=== PATIENT | male | born 1945 | race Two or more races ===

== ENCOUNTER 2017-06-03 14:13 | Inpatient (IN) | payer MEDICARE, OTHER ==
[~2017-06-03] VITALS: Ht 165.1 cm; Wt 79.4 kg
[2017-06-03] MEDS ORDERED: CRESTOR10 MG PO (15:00)
[2017-06-03] MEDS ORDERED: METFORMIN HCL500 M2 PO (15:00)
[2017-06-03] MEDS ORDERED: FOLIC ACID1 MG PO (15:00)
[2017-06-03] MEDS ORDERED: PRIMIDONE50 MG PO (15:00)
[2017-06-03] MEDS ORDERED: ULTRAM 50MG50 MG PO (15:00)
[2017-06-03] MEDS ORDERED: LASIX40 MG PO (15:00)
[2017-06-03] MEDS ORDERED: LEVOTHYROXINE75 MCG PO (15:00)
[2017-06-03] MEDS ORDERED: FINASTERIDE5 MG PO (15:00)
[2017-06-03] MEDS ORDERED: LYRICA50 MG PO (15:00)
[2017-06-03] MEDS ORDERED: FLOMAX0.4 MG PO (15:00)
[2017-06-03] MEDS ORDERED: PANTOPRAZOLE SO40 MG PO (15:00)
[2017-06-03] MEDS ORDERED: CARDURA2 MG PO (15:00)
[2017-06-03] MEDS ORDERED: PANTOPRAZOLE 40 MG 10ML VIAL IV STA (15:01)
[2017-06-03] MEDS ORDERED: ACETAMINOPHEN 325 MG TAB PO STA ×2 (15:01→16:12)
[2017-06-03] MEDS ORDERED: SODIUM CHLORIDE 0.9% 1000ML 1,000 ML IV STA (15:01)
[2017-06-03] MEDS ORDERED: DIPHENHYDRAMINE HCL INJ 50 MG/ML VIAL IV ONE ×2 (15:15→16:15)
[2017-06-03 15:35] LABS: BASOPHILS # (AUTO) 0.1 (0.0-0.1); BASOPHILS % 0.7 % (0.0-1.0); EOSINOPHILS # (AUTO) 1.6 (0.0-0.4); EOSINOPHILS % 14.6 % (0.0-6.0); HEMATOCRIT 23.5 % (38.2-49.6); LYMPHOCYTES # (AUTO) 2.2 (1.0-3.2); LYMPHOCYTES % 19.6 % (18.0-39.1); MEAN CORPUSCULAR HEMOGLOBIN 20.6 pg (28-32); MEAN CORPUSCULAR HGB CONC 29.8 g/dL (31-35); MEAN CORPUSCULAR VOLUME 69.3 fL (81-99); MONOCYTES # (AUTO) 0.8 (0.2-0.8); MONOCYTES % 7.4 % (4.4-11.3); NEUTROPHILS # (AUTO) 6.3 (2.1-6.9); NEUTROPHILS % 57.4 % (38.7-80.0); PLATELET COUNT 225 x10e3/uL (140-360); RED BLOOD COUNT 3.39 x10e6/uL (4.3-5.7); RED CELL DISTRIBUTION WIDTH 19.1 % (11.7-14.4)
[2017-06-03 15:39] LABS: INR 1.23; PROTHROMBIN TIME 14.6 seconds (11.9-14.5)
[2017-06-03 15:40] LABS: PARTIAL THROMBOPLASTIN TIME 35.5 seconds (23.8-35.5)
[2017-06-03 15:41] LABS: BILIRUBIN,URINE NEGATIVE (NEGATIVE); CLARITY,URINE CLEAR (CLEAR); COLOR,URINE YELLOW (YELLOW); KETONES,URINE NEGATIVE (NEGATIVE); LEUKOCYTE ESTERASE ,URINE 1+ (NEGATIVE); NITRITE,URINE NEGATIVE (NEGATIVE); PROTEIN,URINE DIPSTICK NEGATIVE (NEGATIVE); URINE UROBILINOGEN 0.2 mg/dL (0.2 - 1)
[2017-06-03 15:45] LABS: MAGNESIUM 1.5 MG/DL (1.3-2.1)
--- NOTE | 2017-06-03 15:47 | Diagnostic Imaging Report ---
PROCEDURE: Frontal and lateral views of the chest. COMPARISON: None. INDICATIONS: DR. DE GUZMAN, LOW HEMOGLOBIN FINDINGS: Lines/tubes: None. Lungs: The lungs are moderately inflated. Central vascular congestion with perihilar interstitial opacities Pleura: There is no pleural effusion or pneumothorax. Heart and mediastinum: Aortic calcifications. The heart and the mediastinum are normal. Bones: Age-indeterminate minimal compression of two adjacent lower thoracic/upper lumbar vertebral bodies. Intact median sternotomy wires. IMPRESSION: Bilateral opacities may reflect interstitial edema or atypical infection. Dictated by: Leroy Stark M.D. on 06/03/2017 at 15:47 Electronically approved by: Leroy Stark M.D. on 06/03/2017 at 15:47
[2017-06-03 15:51] LABS: ALBUMIN 3.6 g/dL (3.5-5.0); ALBUMIN/GLOBULIN RATIO 0.9 (0.8-2.0); ANION GAP 14.6 mmol/L (8-16); CALCIUM 9.3 mg/dL (8.4-10.2); CREATININE, SERUM 1.53 mg/dL (0.72-1.25); POTASSIUM 3.6 mmol/L (3.5-5.1)
[2017-06-03 16:01] LABS: EPITHELIAL CELLS,URINE MANY /LPF; WBC,URINE (MAN) 0-5 /HPF (0-5)
[2017-06-03 16:01] LABS: CREATINE KINASE MB 3.7 ng/mL (0-5.0)
[2017-06-03] MEDS ORDERED: LEVOFLOXACIN 500MG/D5W 100ML 100 ML IV STA (16:06)
[2017-06-03 16:14] LABS: FERRITIN 17.29 ng/mL (21.81-274.66)
[2017-06-03] MEDS ORDERED: FUROSEMIDE INJ 10 MG/ML 4 ML VIAL IV ONE (16:15)
[2017-06-03] MEDS ORDERED: SODIUM CHLORIDE 0.9% 250ML 250 ML IV ONE (16:15)
[2017-06-03] MEDS ORDERED: DEXTROSE 50% SYRINGE 50 ML IV PRN (16:15)
[2017-06-03] MEDS ORDERED: FUROSEMIDE INJ 10 MG/ML 2 ML VIAL IV PRN ×2 (16:15→20:15)
[2017-06-03 16:21] LABS: THYROID STIMULATING HORMONE 1.874 uIU/mL (0.350-4.940)
[2017-06-03 16:27] LABS: EOSINOPHILS % (MANUAL) 12 % (0-7); HYPOCHROMASIA MARKED; LYMPHOCYTES % (MANUAL) 17 % (19-48); MONOCYTES % (MANUAL) 6 % (3.4-9.0); NEUTROPHILS % (MANUAL) 64 % (40-74); POIKILOCYTOSIS SLIGHT
[2017-06-03 16:28] LABS: SCHISTOCYTES MODERATE; STOMATOCYTES SLIGHT; TARGET CELLS FEW
[2017-06-03 16:30] LABS: PLATELET ESTIMATE ADEQUATE; PLATELET MORPHOLOGY COMMENT NORMAL
[2017-06-03] MEDS ORDERED: FUROSEMIDE INJ 10 MG/ML 4 ML VIAL IV SCH (16:30)
[2017-06-03] MEDS ORDERED: LEVOFLOXACIN 500MG/D5W 100ML 100 ML IV SCH (16:30)
[2017-06-03] MEDS: INSULIN REGULAR, HUMAN 100 UNIT/1 ML 3ML VIAL SQ SCH ×2 (16:30→22:03)
[2017-06-03 16:31] LABS: RBC MORPHOLOGY COMMENT ABNORMAL
--- OUTSIDE RECORDS SUMMARY | 2017-06-03 16:51 | XMS REPORT ---
Author [facility] Address Unknown Phone Unavailable Care Team Providers Care Independent Contractor Name Role Phone JO ROBB Unavailable Unavailable Problems This patient has no known problems. Allergies, Adverse Reactions, Alerts This patient has no known allergies or adverse reactions. Medications This patient has no known medications. Results Test Description Test Time Test Comments Text Results Atomic Results Result Comments CHEST 2 VIEWS [place] [id number] Patient Name: LIAN SILVA MR #: [id number] : 1945 Age/Sex: 71/M Req #: [id number] Adm Physician: Ordered by: JO ROBB MD, MD Report #: [id number] Location: ER Room/Bed: Procedure: [id number] DX/CHEST 2 VIEWS Exam Date: 06/03/17 Exam Time: 1520 REPORT STATUS: Signed PROCEDURE: Frontal and lateral views of the chest. COMPARISON: None. INDICATIONS: DR. DE GUZMAN, LOW HEMOGLOBIN FINDINGS: Lines/tubes: None. Lungs: The lungs are moderately inflated. Central vascular congestion with perihilar interstitial opacities Pleura: There is no pleural effusion or pneumothorax. Heart and mediastinum: Aortic calcifications. The heart and the mediastinum are normal. Bones: Age-indeterminate minimal compression of two adjacent lower thoracic/upper lumbar vertebral bodies. Intact median sternotomy wires. IMPRESSION: Bilateral opacities may reflect interstitial edema or atypical infection. Dictated by : Leroy Rush M.D. on 06/03/2017 at 15:47 Electronically approved by: Leroy Rush M.D. on 06/03/2017 at 15:47 Dictated By: LEROY RUSH MD [id number] Transcribed By: ERICA on 06/03/17 141 COPY TO: JO ROBB
[2017-06-03 17:29] LABS: FOLATE 43.4 ng/mL (7.0-15.4)
[2017-06-03] MEDS: ENOXAPARIN SOD INJ 40 MG/0.4 ML SYR SC SCH (18:02)
[2017-06-03 18:23] VITALS: BP 165/70
[2017-06-03 18:27] VITALS: BP 165/70
[2017-06-03 20:00] VITALS: BP 160/69
[2017-06-03] MEDS ORDERED: ACETAMINOPHEN 325 MG TAB PO SCH (20:15)
[2017-06-03] MEDS ORDERED: DIPHENHYDRAMINE HCL INJ 50 MG/ML VIAL IV SCH (20:15)
[2017-06-03] MEDS ORDERED: SODIUM CHLORIDE 0.9% 250ML 250 ML ONE (20:49)
[2017-06-03] MEDS: FUROSEMIDE INJ 10 MG/ML 4 ML VIAL IV SCH (21:00)
[2017-06-03] MEDS ORDERED: CITRATE OF MAGNESIA 300ML BOTTLE PO ONE (21:00)
[2017-06-03] MEDS ORDERED: CLONIDINE HCL 0.1 MG TAB PO ONE (22:15)
[2017-06-03] MEDS: IPRATROPIUM BROMIDE 0.02% 2.5 ML NEB NEB SCH (23:50)
[2017-06-04] VITALS (9 sets, daily range): BP systolic 135–168; BP diastolic 55–84
[2017-06-04 00:01] LABS: CREATINE KINASE MB 3.6 ng/mL (0-5.0)
[2017-06-04] MEDS: FUROSEMIDE INJ 10 MG/ML 2 ML VIAL IV PRN ×2 (02:50→13:19)
[2017-06-04 06:51] LABS: BASOPHILS # (AUTO) 0.1 (0.0-0.1); BASOPHILS % 0.9 % (0.0-1.0); EOSINOPHILS # (AUTO) 1.9 (0.0-0.4); EOSINOPHILS % 20.6 % (0.0-6.0); HEMATOCRIT 23.8 % (38.2-49.6); LYMPHOCYTES % 22.2 % (18.0-39.1); MEAN CORPUSCULAR HEMOGLOBIN 21.4 pg (28-32); MEAN CORPUSCULAR HGB CONC 30.3 g/dL (31-35); MEAN CORPUSCULAR VOLUME 70.6 fL (81-99); MONOCYTES # (AUTO) 0.8 (0.2-0.8); MONOCYTES % 9.3 % (4.4-11.3); NEUTROPHILS # (AUTO) 4.2 (2.1-6.9); NEUTROPHILS % 46.8 % (38.7-80.0); PLATELET COUNT 194 x10e3/uL (140-360); RED BLOOD COUNT 3.37 x10e6/uL (4.3-5.7); RED CELL DISTRIBUTION WIDTH 20.1 % (11.7-14.4)
[2017-06-04 06:58] LABS: HEMOGLOBIN 7.2 g/dL (14.0-18.0)
[2017-06-04 07:07] LABS: ALBUMIN 3.1 g/dL (3.5-5.0); ALBUMIN/GLOBULIN RATIO 0.8 (0.8-2.0); CALCIUM 9.1 mg/dL (8.4-10.2); CREATININE, SERUM 1.63 mg/dL (0.72-1.25)
[2017-06-04] MEDS: INSULIN REGULAR, HUMAN 100 UNIT/1 ML 3ML VIAL SQ SCH ×4 (07:30→20:07)
[2017-06-04 07:36] LABS: CREATINE KINASE MB 3.1 ng/mL (0-5.0)
[2017-06-04 07:53] LABS: CHOL/HDL RATIO 2.6 (3.9-4.7)
[2017-06-04 08:13] LABS: THYROID STIMULATING HORMONE 1.723 uIU/mL (0.350-4.940)
[2017-06-04] MEDS: IPRATROPIUM BROMIDE 0.02% 2.5 ML NEB NEB SCH ×3 (08:52→19:20)
[2017-06-04] MEDS: LEVALBUTEROL HCL SOLN NEBU 1.25 MG/3 ML NEB INH PRN ×2 (08:52→15:26)
[2017-06-04] MEDS: POTASSIUM CHLORIDE 20 MEQ TAB CR PO SCH (09:00)
[2017-06-04] MEDS: FUROSEMIDE INJ 10 MG/ML 4 ML VIAL IV SCH ×2 (09:14→16:47)
[2017-06-04] MEDS: PANTOPRAZOLE 40 MG 10ML VIAL IV SCH (09:15)
[2017-06-04] MEDS: DOXAZOSIN MESYLATE 2 MG TAB PO SCH (09:15)
--- NOTE | 2017-06-04 12:01 | Consultation ---
DATE OF CONSULTATION: June 03, 2017 CARDIOLOGY CONSULTATION REASON FOR CONSULTATION: Congestive heart failure. HISTORY OF PRESENT ILLNESS: Mr. Carranza is a 71-year-old gentleman who is a very, very poor historian, and is quite clueless about his health care. From what I can ascertain, he is a 71-year-old gentleman with past medical history of hypertension, hypercholesterolemia, type 2 diabetes, coronary artery disease with prior history of bypass and what sounds to be a bioprosthetic aortic valve replacement surgery in [address] More, questionable history of left lower extremity bypass operation in the past who has been reporting progressive fatigue, malaise, lower extremity swelling, difficulty catching his breath and not doing very well. He has been noticed to have a progressive drop in his hemoglobin and was noted to have a hemoglobin of 6.7 upon PCP check and was advised to come to the hospital. He reports about a week ago he was asked to stop his aspirin and about 2 days ago he stopped his Plavix. He denies any bright red blood per rectum, melena or any hematemesis, but then again he does not pay attention to that. He does report a remote history of colonoscopy about 6 years ago, but unclear as to the details of what that showed. He currently denies any chest pain or discomfort. At baseline, he endorses class 3 exertional dyspnea. He reports 2-3 pillow use. No PND. He has increased lower extremity swelling and feels tightness due to the swelling. PAST MEDICAL HISTORY: 1. Hypertension, essential. 2. Type 2 diabetes. 3. Hypercholesterolemia. 4. Coronary artery disease with prior history of CABG in 2009 with concomitant bioprosthetic aortic valve replacement. 5. Severe peripheral neuropathy. 6. Peripheral arterial disease with questionable left lower extremity bypass operation. PAST SURGICAL HISTORY: 1. History of CABG with aortic valve replacement in 2009. 2. History of left, presumably fem/pop bypass surgery. FAMILY HISTORY: Mother and father in their 80s, supposedly were healthy and of old age. Denies any family history of coronary artery disease. SOCIAL HISTORY: He says he is a life long nonsmoker. Denies any alcohol or illicit drug use. ALLERGIES: NO KNOWN DRUG ALLERGIES. HOME MEDICATIONS: Doxazosin 2 mg daily, finasteride 5 mg daily, folate 1 mg daily, Lasix 40 mg b.i.d., Synthroid 75 mcg daily, metformin 1000 mg b.i.d., Protonix 40 mg daily, Lyrica 100 mg daily, Pyrimidine 50 mg b.i.d., Crestor 10 mg daily, Tamsulosin 0.4 mg daily, tramadol 50 mg b.i.d. p.r.n., aspirin 81 daily, quit one week ago, Plavix 75 daily, quit two days ago. REVIEW OF SYSTEMS: GENERAL: Positive for fatigue and malaise. Denies any fevers, chills. Positive for weight gain. HEENT: No headaches, visual complaints, sore throat, stuffy nose. RESPIRATORY: Denies any pleuritic chest pain. Has class 3, approaching 4, exertional dyspnea, has a nonproductive cough. CARDIOVASCULAR: Denies any chest pain or discomfort. Symptoms as noted above. No palpitations, syncope or near syncope. GI: Denies any abdominal pain, bright red blood per rectum, melena, hematemesis. : Denies any dysuria. Does have urinary frequency with nocturia and BPH type symptoms. MUSCULOSKELETAL: Has chronic leg pains and cramps. Pain with exertion in his calves. ENDOCRINE: Positive for diabetes. No polyuria or polydipsia. NEUROLOGIC: Denies any focal weakness, numbness, tingling, seizures, headache, history of TIA or stroke. PHYSICAL EXAMINATION VITAL SIGNS: Height of 65 inches, weight 175 pounds. BMI is 29.1. Temperature 97.0. Pulse 86. Respiratory rate 18. Blood pressure 115/53. O2 sat 98% on room air IN GENERAL: This is a well-nourished, well-developed gentleman who is currently in no apparent distress. HEENT: Pupils are equally round and reactive to light. Extraocular movements are intact. Oropharynx is clear. Face is a little bit ashen. NECK: There is elevation of jugular pulsations at the angle of the mandible. Bilateral carotid bruits noted. CARDIOVASCULAR: Regular rate and rhythm. Normal S1 and S2. A 3/6 systolic ejection murmur in the right upper sternal border. A 2/6 holosystolic murmur at the apex. LUNGS: Show diminished bibasilar breath sounds and some slight crackles at the bases. ABDOMEN: Soft, nontender, obese with normoactive bowel sounds. No hepatosplenomegaly. BACK: No costovertebral angle tenderness. EXTREMITIES: Warm with 3+ edema to the mid shins. There is extensive left lower extremity eschar among the medial aspect of the leg compatible with prior history of fem/pop bypass surgery, and there is 1+ femoral pulse and nearly absent pedal pulses bilaterally. SKIN: There are venous stasis changes in the bilateral lower extremities, right more than left and edema and also there is old midline sternotomy scar. NEUROLOGIC: Cranial nerves II-XII are intact. Strength is 5/5, grossly nonfocal. LABORATORY DATA: White count 11, hemoglobin 7.0, hematocrit 23.5, MCV 69, platelets of 225,000, sodium 136, potassium 3.6, chloride 96, bicarb 29, BUN 33, creatinine 1.5, glucose 101, calcium 9.3, AST 22, ALT 10, alkaline phosphatase 64, total protein 7.8, albumin 3.6. BNP is 367. Iron panel shows iron of 23. TIBC of 519, percent sat 4%, ferritin of 17.3. INR is 1.23 UA shows 0-5 white cells. Fecal occult blood test is negative. EKG reveals sinus rhythm, right bundle branch block, left anterior fascicular block. Echo pending. DIAGNOSES 1. Symptomatic anemia. 2. [id number] decompensated diastolic heart failure. 3. Aortic valve disease, status post bioprosthetic aortic valve surgery in 2009. 4. Bilateral lower extremity edema with venous stasis issues. 5. Peripheral arterial disease with claudication. 6. Bilateral carotid bruits, suspect carotid artery stenosis. 7. Iron deficiency anemia, chronic. PLAN/RECOMMENDATIONS: 1. From a cardiovascular standpoint, will go ahead and place him on IV Lasix therapy for diuresis. I agree with packed red blood cell transfusion to pump up his hemoglobin and hematocrit. 2. I agree with IV PPI therapy for now, and GI has been consulted and will likely benefit from scope procedures. 3. Will follow up on echocardiogram. 4. Will check lower extremity arterial Duplex and a carotid Duplex to evaluate the presence of peripheral arterial disease, and reevaluate his lower extremity peripheral vascular disease. 5. Will continue to follow this patient with you. Thank you for this referral. Job#: [id number]
--- NOTE | 2017-06-04 13:26 | History and Physical ---
PRIMARY CARE AND ATTENDING PHYSICIAN: Dr. Marcin Thompson. CHIEF COMPLAINT: Trouble breathing on exertion progressively getting worse since last couple of weeks associated with finding of low hemoglobin of 6.5 at PCP's office. HISTORY OF PRESENT MEDICAL ILLNESS: A 71-year-old pleasant [place] man with past medical history of multiple medical problems, [facility] with above complaints. As per patient since last few weeks, he was getting short of breath, progressively getting worse. Patient had a blood test done at PCP's office, which showed hemoglobin of 6.5 and hence, patient was sent to the emergency room. In the emergency room, patient was seen by emergency room doctor and admitted for CHF exacerbation and severe symptomatic anemia. Patient received 1 unit of packed RBC last night and is planned to receive 1 more unit of packed RBC today. At present, patient is lying comfortably in bed, in no apparent distress. No chest pain, no shortness of breath at rest. No nausea, vomiting, or diarrhea. No abdominal pain or loss of consciousness. No palpitations. No headaches. No hematemesis, no melena. No hematuria, no dysuria. No fever. No cough. No witnessed seizures. PAST MEDICAL HISTORY 1. CAD. 2. Aortic valve replacement. 3. PAD. 4. Diabetes mellitus type 2. 5. Hypertension. 6. CKD. 7. BPH. 8. Osteoarthritis. MEDICATIONS: As listed in chart. ALLERGIES: NO KNOWN DRUG ALLERGIES. PAST SURGICAL HISTORY 1. Aortic valve replacement. 2. Left lower extremity PAD bypass surgeries done twice. FAMILY HISTORY: Noncontributory. SOCIAL HISTORY: Ex-smoker. No alcohol. No illicit drug use. Lives with family. REVIEW OF SYSTEMS: As per HPI. PHYSICAL EXAMINATION: GENERAL: Patient is alert, awake, and oriented times 3, in no apparent distress, lying in bed. VITAL SIGNS: Temperature is 96, pulse is 74 per minute, respiratory rate is 18 per minute, blood pressure 141/61, and saturation is 96%. SKIN: No cyanosis. No icterus. Pallor. HEENT: Normocephalic, atraumatic. PERRLA. NECK: Soft and supple. No JVD. No thyromegaly. LUNGS: Air entry bilaterally equal. Bibasilar rales present. HEART: No murmur or gallop. ABDOMEN: Soft and nontender. Bowel sounds positive. LANDS RESOURCE MANAGER: Alert, awake, and oriented times 3. No focal deficit. EXTREMITIES: No cyanosis. No clubbing. No edema. LABS: This morning, sodium 137, potassium 4.0, chloride 96, bicarb 32, BUN 35, creatinine 1.63, glucose 131. BNP is 308.6. Cardiac enzymes times 1 negative. White count 9.01, hemoglobin 7.2, status post 1 unit packed RBC, hematocrit 23.8, MCV 70.6, platelets 194. INR 2.3. Urine; no blood. Stool for occult blood negative. Chest x-ray shows bilateral opacities, most likely interstitial edema or atypical infection. ASSESSMENT 1. Severe symptomatic anemia. 2. Congestive heart failure exacerbation. 3. History of coronary artery disease. 4. Aortic valve replacement. 5. Peripheral artery disease. 6. Diabetes mellitus. 7. Hypertension. PLAN: Admit patient to [facility]. Patient receiving packed RBC blood transfusions. GI consultation, Dr. Brown. Cardiology consultation, Dr. Jackson. A 2D echo. Oxygen and neb treatments. We will also get renal consultation for CKD. IV Protonix. Further care and treatment while the patient in the hospital. Discussed with patient in detail. Prognosis and condition guarded. Job#: [id number] MARYELLEN
--- NOTE | 2017-06-04 16:18 | Consultation ---
DATE OF CONSULTATION: June 04, 2017 RENAL CONSULTATION NOTE DATE OF : [birth year] REQUESTING PHYSICIAN: Dr. Marcin Thompson. REASONS FOR CONSULTATION 1. Elevated serum creatinine. 2. Fluid, electrolyte, and acid-base management. HISTORY OF PRESENT ILLNESS: This is a pleasant 71-year-old man with history of; 1. Hypertension. 2. Diabetes mellitus. 3. ? Chronic kidney disease. 4. Benign prostatic hypertrophy. 5. Osteoarthritis. 6. Coronary artery disease. 7. Status post coronary artery bypass surgery. 8. Aortic valve replacement. 9. Peripheral vascular disease. 10. Status post fem-pop bypass surgery. 11. Neuropathy. The patient was admitted to [facility] for CHF exacerbation and symptomatic anemia. He presented to the hospital with chief complaint of generalized weakness, lower extremity swelling, and anemia. His hemoglobin level on admission was 7.0. He is status post PRBC transition. Nephrology consultation was requesting for elevated serum creatinine, fluid electrolyte and acid-base management. His labs today show serum creatinine of 1.6 with BUN of 35. His serum creatinine level on admission was 1.5. No report of chest pain, nausea, vomiting, fever, or headache at the present time. PAST MEDICAL HISTORY: As per HPI. PAST SURGICAL HISTORY: As per HPI. ALLERGIES TO MEDICATIONS: PER MAR. SOCIAL HISTORY: Negative x3. FAMILY HISTORY: Negative for kidney disease. REVIEW OF SYSTEMS: Positive for generalized weakness, lower extremity swelling, and anemia on admission as per HPI. Rest of the review of systems is essentially negative at the present time with no complaints of chest pain, nausea, vomiting, diarrhea, fever, or headache. PHYSICAL EXAMINATION: GENERAL: A pleasant man in bed, in no acute respiratory distress at the present time. VITAL SIGNS: Blood pressure 135/55, pulse is 57, respiratory rate 12. Input and output noted. HEENT: Pupils are reactive to light. NECK: Supple. CHEST: Lungs with decreased breath sounds at the bases. CARDIOVASCULAR: S1 and S2 heard. ABDOMEN: Soft. EXTREMITIES: Positive edema. NEUROLOGIC: Awake and alert. PSYCHIATRIC: Normal mood. LABS: Serum sodium 137, potassium 4.0, chloride 96, bicarbonate 32, BUN is 35, creatinine is 1.6, calcium is 9.1. Hemoglobin is 7.2. Chest x-ray findings noted. ASSESSMENT 1. ? Acute kidney injury versus acute kidney on chronic kidney disease versus chronic kidney disease, stage 3. 2. Fluid overload. 3. Anemia. 4. Congestive heart failure. 5. Diabetes mellitus. 6. Hypertension. PLAN 1. Unknown baseline serum creatinine. Acute kidney injury versus acute kidney injury on chronic kidney disease versus chronic kidney disease, stage 3 secondary to diabetes mellitus, hypertension, and cardiorenal. Could also have component of acute kidney injury secondary to prerenal/cardiorenal plus decreased renal perfusion in the setting of low H and H levels. We will check renal ultrasound to evaluate kidneys and rule out obstruction. We will continue to monitor renal indices and urine output. 2. Volume status, fluid overload on exam. Low salt diet plus continue IV Lasix. 3. Serum electrolytes are stable. 4. Monitor acid-base status. 5. Monitor serum calcium, phosphorus, and magnesium levels. 6. Strict I's and O's and daily weights. 7. Renally dose all medications. 8. Avoid NSAIDs except aspirin. 9. Monitor H and H levels/status post PRBC transfusion plus GI/hematology evaluations per primary team. 10. Blood pressure is stable. 11. Monitor Accu-Cheks and diabetes mellitus management plan redeem. 12. A 2D and Doppler echocardiogram plus cardiology evaluation for congestive heart failure and history of coronary artery disease. 13. Presently, there is no acute indication for hemodialysis. We will continue to closely monitor his renal function, limb status, serum electrolytes, urine output, and acid-base status. His UA was fairly benign. Thanks for the interesting consult. We will continue to closely follow the patient with you. Please do not hesitate to call us for any further questions. Job#: [id number] MARYELLEN
[2017-06-04] MEDS: HYDRALAZINE HCL 25 MG TAB PO SCH (16:48)
[2017-06-04] MEDS: ENOXAPARIN SOD INJ 40 MG/0.4 ML SYR SC SCH (16:48)
[2017-06-04] MEDS ORDERED: PEG (High)/E-LYTE SOLN 4,000 ML BTL PO ONE (19:30)
[2017-06-04] MEDS: PREGABALIN 75 MG CAP PO SCH (19:50)
[2017-06-05] VITALS (8 sets, daily range): BP systolic 117–197; BP diastolic 52–77
--- NOTE | 2017-06-05 00:01 | Progress Note ---
DATE: June 04, 2017 SUBJECTIVE: Patient reports no abdominal pain. He is tolerating oral feeds. Has had a bowel movement with yellow brown stool. REVIEW OF SYSTEMS: GENERAL: Weakness and shortness of breath on minimal exertion. CVS: No chest pain, palpitation. RESPIRATORY: No cough or expectoration. MEDICATIONS: Reviewed, as per MAY. PHYSICAL EXAMINATION: VITAL SIGNS: Temperature 97.8, pulse 61, respirations 19, blood pressure 165/62. Oxygen saturation 96% on room air. GENERAL: Not in any acute distress. HEENT: Moist mucous membranes. Anicteric sclerae. CVS: S1 and S2 regular. LUNGS: Bilaterally grossly clear. ABDOMEN: Protuberant. Belly soft, nondistended, nontender. No mass or hernia. Positive bowel sounds. EXTREMITIES: Warm. Trace bilateral leg edema. LABS: Hemoglobin has come up to 7.2 from 7.0. Stool guaiac is negative. IMPRESSION: Iron deficiency anemia. PLAN: Continue clear liquid diet. Bowel prep tonight. EGD and colonoscopy tomorrow. Job#: [id number] DR SALMERON
[2017-06-05] MEDS: HYDRALAZINE HCL 25 MG TAB PO SCH ×4 (06:26→23:30)
[2017-06-05] MEDS: IPRATROPIUM BROMIDE 0.02% 2.5 ML NEB NEB SCH ×3 (07:00→19:23)
[2017-06-05 07:23] LABS: BASOPHILS # (AUTO) 0.1 (0.0-0.1); BASOPHILS % 0.8 % (0.0-1.0); EOSINOPHILS # (AUTO) 1.2 (0.0-0.4); EOSINOPHILS % 13.9 % (0.0-6.0); HEMATOCRIT 29.5 % (38.2-49.6); LYMPHOCYTES # (AUTO) 1.7 (1.0-3.2); LYMPHOCYTES % 20.5 % (18.0-39.1); MEAN CORPUSCULAR HEMOGLOBIN 22.3 pg (28-32); MEAN CORPUSCULAR HGB CONC 30.5 g/dL (31-35); MONOCYTES # (AUTO) 0.7 (0.2-0.8); MONOCYTES % 8.4 % (4.4-11.3); NEUTROPHILS # (AUTO) 4.7 (2.1-6.9); NEUTROPHILS % 56.2 % (38.7-80.0); PLATELET COUNT 213 x10e3/uL (140-360); RED BLOOD COUNT 4.04 x10e6/uL (4.3-5.7); RED CELL DISTRIBUTION WIDTH 21.1 % (11.7-14.4)
[2017-06-05 07:28] LABS: ALBUMIN 3.5 g/dL (3.5-5.0); ALBUMIN/GLOBULIN RATIO 0.9 (0.8-2.0); ANION GAP 14.8 mmol/L (8-16); CALCIUM 9.5 mg/dL (8.4-10.2); CREATININE, SERUM 1.64 mg/dL (0.72-1.25); POTASSIUM 3.8 mmol/L (3.5-5.1)
[2017-06-05] MEDS: INSULIN REGULAR, HUMAN 100 UNIT/1 ML 3ML VIAL SQ SCH ×4 (07:30→20:56)
[2017-06-05 07:49] LABS: MAGNESIUM 1.8 MG/DL (1.3-2.1)
[2017-06-05] MEDS: PANTOPRAZOLE 40 MG 10ML VIAL IV SCH (12:28)
[2017-06-05] MEDS: FUROSEMIDE INJ 10 MG/ML 4 ML VIAL IV SCH ×2 (12:28→17:11)
[2017-06-05] MEDS: PREGABALIN 75 MG CAP PO SCH ×2 (12:29→17:11)
[2017-06-05] MEDS: DOXAZOSIN MESYLATE 2 MG TAB PO SCH (12:29)
[2017-06-05] MEDS: POTASSIUM CHLORIDE 20 MEQ TAB CR PO SCH (12:30)
[2017-06-05] MEDS: ENOXAPARIN SOD INJ 40 MG/0.4 ML SYR SC SCH (14:12)
--- NOTE | 2017-06-05 19:03 | Consultation ---
DATE OF CONSULTATION: GI CONSULT NOTE REFERRING PHYSICIAN: Dr. Marcin Thompson REASON FOR CONSULT: Microcytic anemia. HISTORY OF PRESENTING ILLNESS: Fgdknyu-ubvuq-etxf-old [place] male got admitted with symptomatic anemia. Hemoglobin was noted 7.0, MCV 69.3. Iron profile showed elevated TIBC. No gross GI bleeding. He has had a colonoscopy more than 4 to 5 years ago. Denies any chronic use of NSAIDs. No prior history of peptic ulcer disease. Denies any melena, hematemesis, hematochezia. He is not on any anticoagulants. His stool was tested heme negative x1. GI has been consulted for further evaluation of microcytic iron deficiency anemia. REVIEW OF SYSTEMS: As per HPI. PAST MEDICAL HISTORY: Type 2 diabetes, benign prostatic hypertrophy, hypothyroidism, hyperlipidemia, hypertension. PAST SURGICAL HISTORY: Colonoscopy 4 to 5 years ago. 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 SOCIAL HISTORY: No smoking, alcohol, or any illicit drug use. ALLERGIES: NONE. HOME MEDICATIONS: Doxazosin, finasteride, folic acid, furosemide, levothyroxine, metformin, pantoprazole, pregabalin, primidone, rosuvastatin, tamsulosin, tramadol. INPATIENT MEDICATIONS: Reviewed. PHYSICAL EXAMINATION: VITAL SIGNS: Temperature 95.7, pulse 74, respiration 18, blood pressure 160/69 over 180/75, oxygen saturation 96% on room air. GENERAL: Not in any acute distress, gross pallor. HEENT: Moist mucous membranes. Anicteric sclerae. CVS: S1 and S2. Regular with a 3/6 flow murmur at the apex. LUNGS: Bilaterally grossly clear. ABDOMEN: Soft, nondistended, truncal obesity. No mass or hernia. Positive bowel sounds. EXTREMITIES: Warm. No leg edema. LABS: Sodium 136, potassium 3.6, chloride 96, bicarb 29, BUN 33, creatinine 1.53. Liver enzymes normal. TIBC 519, serum iron level 23, iron saturation 4%, ferritin 17.29. Stool guaiac negative. PT 14.6, INR 1.23. Chest x-ray, no acute cardiopulmonary process, bilateral opacities may reflect interstitial edema . IMPRESSION: Iron deficiency anemia with stool occult negative x1. PLAN: Clear liquid diet, bowel prep tomorrow, upper endoscopy and colonoscopy for evaluation of iron deficiency anemia on this admission. I thank Dr. Thompson for allowing me to participate in the care of this patient. Job#: [id number] DR SALMERON
[2017-06-06] VITALS (7 sets, daily range): BP systolic 120–176; BP diastolic 60–74
[2017-06-06] MEDS: IPRATROPIUM BROMIDE 0.02% 2.5 ML NEB NEB SCH ×4 (01:10→19:40)
[2017-06-06 06:44] LABS: BASOPHILS # (AUTO) 0.1 (0.0-0.1); BASOPHILS % 0.8 % (0.0-1.0); EOSINOPHILS # (AUTO) 1.6 (0.0-0.4); EOSINOPHILS % 16.4 % (0.0-6.0); HEMATOCRIT 29.2 % (38.2-49.6); HEMOGLOBIN 8.8 g/dL (14.0-18.0); LYMPHOCYTES # (AUTO) 1.9 (1.0-3.2); LYMPHOCYTES % 19.9 % (18.0-39.1); MEAN CORPUSCULAR HGB CONC 30.1 g/dL (31-35); MONOCYTES # (AUTO) 0.7 (0.2-0.8); MONOCYTES % 7.6 % (4.4-11.3); NEUTROPHILS # (AUTO) 5.3 (2.1-6.9); PLATELET COUNT 196 x10e3/uL (140-360); RED CELL DISTRIBUTION WIDTH 21.7 % (11.7-14.4)
[2017-06-06 07:08] LABS: ALBUMIN 3.3 g/dL (3.5-5.0); ALBUMIN/GLOBULIN RATIO 0.8 (0.8-2.0); ANION GAP 12.3 mmol/L (8-16); CALCIUM 9.4 mg/dL (8.4-10.2); CREATININE, SERUM 1.6 mg/dL (0.72-1.25); POTASSIUM 4.3 mmol/L (3.5-5.1)
[2017-06-06] MEDS: INSULIN REGULAR, HUMAN 100 UNIT/1 ML 3ML VIAL SQ SCH ×4 (08:00→22:01)
[2017-06-06 08:16] LABS: EOSINOPHILS % (MANUAL) 13 % (0-7); LYMPHOCYTES % (MANUAL) 12 % (19-48); MONOCYTES % (MANUAL) 8 % (3.4-9.0); NEUTROPHILS % (MANUAL) 65 % (40-74); NUCLEATED RED BLOOD CELLS 1; PROMYELOCYTES % (MANUAL) 1 % (0-0)
[2017-06-06 08:19] LABS: HYPOCHROMASIA SLIGHT
[2017-06-06 08:20] LABS: ANISOCYTOSIS SLIGHT; PLATELET ESTIMATE ADEQUATE; PLATELET MORPHOLOGY COMMENT NORMAL; POIKILOCYTOSIS SLIGHT; RBC MORPHOLOGY COMMENT NORMAL
[2017-06-06] MEDS: HYDRALAZINE HCL 25 MG TAB PO SCH ×3 (08:33→22:01)
[2017-06-06] MEDS: FUROSEMIDE INJ 10 MG/ML 4 ML VIAL IV SCH ×4 (08:33→22:01)
[2017-06-06] MEDS: POTASSIUM CHLORIDE 20 MEQ TAB CR PO SCH (08:33)
[2017-06-06] MEDS: PREGABALIN 75 MG CAP PO SCH ×2 (08:33→17:37)
[2017-06-06] MEDS: DOXAZOSIN MESYLATE 2 MG TAB PO SCH (08:33)
[2017-06-06] MEDS: PANTOPRAZOLE 40 MG 10ML VIAL IV SCH (08:33)
--- NOTE | 2017-06-06 11:44 | Diagnostic Imaging Report ---
PROCEDURE:US RETROPERITONEAL ( KIDNEY ). COMPARISON:None. INDICATIONS:JEANNETTE TECHNIQUE: Melgar-scale and color sonographic images of the bilateral kidneys and bladder where obtained in transverse and longitudinal planes. FINDINGS: RIGHT KIDNEY: 10.6 cm in length, cortical thickness 2.1 cm. Cysts: Exophytic simple cyst projects from the interpolar region and measures 1.2 x 0.9 x 1.0 cm. Solid masses: None Stones: None Hydronephrosis: None Echogenicity: Increased renal cortical echogenicity. LEFT KIDNEY: 10.7 cm in length, cortical thickness 1.2 cm. Cysts: None Solid masses: None Stones: None Hydronephrosis: None Echogenicity: Increased renal cortical echogenicity. Bladder: Unremarkable. Right and left ureteral jets are identified. Prostate: 2 x 1 x 2 cm, estimated volume 2.1 cc CONCLUSION: Increased renal cortical echogenicity suggestive of medical renal disease. No hydronephrosis. Dictated by: Jose Luis Lanza M.D. on 06/06/2017 at 11:43 Electronically approved by: Jose Luis Lanza M.D. on 06/06/2017 at 11:43
[2017-06-06] MEDS: ENOXAPARIN SOD INJ 40 MG/0.4 ML SYR SC SCH (17:37)
[2017-06-07] VITALS: BP 159/65
[2017-06-07] MEDS: INSULIN REGULAR, HUMAN 100 UNIT/1 ML 3ML VIAL SQ SCH ×3 (00:49→11:30)
[2017-06-07] MEDS: IPRATROPIUM BROMIDE 0.02% 2.5 ML NEB NEB SCH ×3 (01:12→13:00)
[2017-06-07 04:00] VITALS: BP 136/60
[2017-06-07] MEDS: FUROSEMIDE INJ 10 MG/ML 4 ML VIAL IV SCH (07:30)
[2017-06-07 07:36] LABS: BASOPHILS # (AUTO) 0.1 (0.0-0.1); BASOPHILS % 0.9 % (0.0-1.0); EOSINOPHILS % 15.9 % (0.0-6.0); HEMATOCRIT 31.8 % (38.2-49.6); HEMOGLOBIN 9.6 g/dL (14.0-18.0); LYMPHOCYTES # (AUTO) 2.2 (1.0-3.2); LYMPHOCYTES % 17.3 % (18.0-39.1); MEAN CORPUSCULAR HEMOGLOBIN 21.9 pg (28-32); MEAN CORPUSCULAR HGB CONC 30.2 g/dL (31-35); MEAN CORPUSCULAR VOLUME 72.6 fL (81-99); MONOCYTES % 7.8 % (4.4-11.3); NEUTROPHILS # (AUTO) 7.3 (2.1-6.9); NEUTROPHILS % 57.8 % (38.7-80.0); PLATELET COUNT 218 x10e3/uL (140-360); RED BLOOD COUNT 4.38 x10e6/uL (4.3-5.7); RED CELL DISTRIBUTION WIDTH 22.5 % (11.7-14.4)
[2017-06-07 07:41] VITALS: BP 136/60
[2017-06-07 08:00] VITALS: BP 135/60
[2017-06-07 08:05] LABS: ALBUMIN 3.7 g/dL (3.5-5.0); ALBUMIN/GLOBULIN RATIO 0.9 (0.8-2.0); ANION GAP 14.6 mmol/L (8-16); CALCIUM 10.3 mg/dL (8.4-10.2); CREATININE, SERUM 1.6 mg/dL (0.72-1.25); POTASSIUM 4.6 mmol/L (3.5-5.1)
[2017-06-07] MEDS: PANTOPRAZOLE 40 MG 10ML VIAL IV SCH (08:46)
[2017-06-07] MEDS: DOXAZOSIN MESYLATE 2 MG TAB PO SCH (08:46)
[2017-06-07] MEDS: HYDRALAZINE HCL 25 MG TAB PO SCH (08:46)
[2017-06-07] MEDS: POTASSIUM CHLORIDE 20 MEQ TAB CR PO SCH (08:47)
[2017-06-07] MEDS: PREGABALIN 75 MG CAP PO SCH (08:47)
[2017-06-07 09:00] VITALS: BP 135/60
[2017-06-07] MEDS ORDERED: FUROSEMIDE INJ 10 MG/ML 4 ML VIAL IV SCH (09:00)
[2017-06-07] MEDS ORDERED: EPOETIN ALFA 10000 UNIT/ML VIAL SC SCH (09:00)
--- NOTE | 2017-06-07 09:39 | Consultation ---
DATE OF CONSULTATION: June 07, 2017 REASON FOR CONSULTATION: Anemia. This is a very pleasant 71-year-old gentleman with a past medical history including diabetes, prostatic hypertrophy, hypothyroidism, hyperlipidemia, and hypertension. He is currently in the hospital for fatigue, lethargic and tiredness. At admission, workup showed microcytic anemia. The patient's anemia workup also shows iron deficiency anemia and anemia of chronic disease. The patient had a history of colonoscopy 4-5 years ago. No recent history of any NSAID use or peptic ulcer disease. The patient also has renal insufficiency. He denies any other symptoms. PAST MEDICAL HISTORY: Diabetes, benign prostatic hypertrophy, hypothyroidism, hyperlipidemia, hypertension. PAST SURGICAL HISTORY: Colonoscopy 5 years ago. FAMILY HISTORY: No family history of any blood or malignancy. SOCIAL HISTORY: The patient denies any smoking, alcohol or drugs. ALLERGIES: NKDA. MEDICATIONS: List reviewed. REVIEW OF SYSTEMS: A 12-point review of systems as per HPI. PHYSICAL EXAMINATION GENERAL: Alert, awake and communicative. HEENT: Normocephalic and atraumatic. Sclerae pink. Conjunctivae clear. NECK: Supple. CHEST: Decreased breath sounds in the bases. CARDIOVASCULAR: Regular rate and rhythm. ABDOMEN: Soft and nontender. EXTREMITIES: No clubbing, cyanosis or edema. STAB SETTER AND DRILLER: Grossly intact. LABS AND IMAGING: Reviewed. ASSESSMENT AND PLAN: The patient with a history of multiple medical conditions. I am currently following for: 1. Microcytic anemia: The patient's anemia workup showed iron deficiency anemia and anemia of chronic disease. Recommendation is will start the patient on iron sucrose. Will also start the patient on Epogen treatment. Further recommendations and treatment as per more workup. The patient is currently following with search analyst. Will follow GI recommendations. 2. Hypothyroidism: The patient currently not on any thyroid medication. Defer to primary care physician. 3. Hypertension: The patient will continue hydralazine. Will continue remaining care. Will follow the patient closely. Job#: [id number] MICHAEL
[2017-06-07] MEDS ORDERED: IRON SUCROSE 100 MG in SODIUM CHLORIDE 0.9% 100 ML 100 ML IV SCH (10:00)
[2017-06-07 12:00] VITALS: BP 131/78
[2017-06-07] MEDS ORDERED: HYDRALAZINE HCL25 MG PO (12:28)
[2017-06-07 12:53] LABS: ANISOCYTOSIS SLIGHT; EOSINOPHILS % (MANUAL) 31 % (0-7); LYMPHOCYTES % (MANUAL) 16 % (19-48); MONOCYTES % (MANUAL) 3 % (3.4-9.0); NEUTROPHILS % (MANUAL) 48 % (40-74); PLATELET ESTIMATE ADEQUATE; PLATELET MORPHOLOGY COMMENT NORMAL; POIKILOCYTOSIS MODERATE; RBC MORPHOLOGY COMMENT NORMAL
[2017-06-07 12:54] LABS: HYPOCHROMASIA SLIGHT
--- NOTE | 2017-06-07 15:19 | Cardiology Report ---
DATE OF STUDY: June 06, 2017 CAROTID DOPPLER STUDY HISTORY: This 71 y/o male presented with a history of rectal bleeding and severe anemia. He has known carotid artery disease and h/o coronary artery bypass surgery and aortic valve replacement. INTERPRETATION 1. Right carotid artery: There was normal flow velocity in the common carotid artery and bulb, and there was higher flow velocity up to 150/23 in the mid and distal internal carotid arteries. The external carotid artery had upper normal flow velocity. There was moderate disease noted in the mid and distal segment of the internal carotid artery. There was mild disease noted in the proximal external carotid artery. Vertebral artery had normal antegrade flow. 2. Left carotid artery: There was normal flow velocity in the common carotid artery. There was elevated flow velocity up to 177/22 in the mid internal carotid artery and distal internal carotid artery. External carotid artery had upper normal flow velocity. Vertebral artery had normal flow velocity. There was moderate disease noted in the mid internal carotid artery, and there was mild disease noted in the proximal internal carotid artery. There was also moderate disease noted in the external carotid artery. FINAL IMPRESSION 1. Bilateral internal carotid artery proximal and mid segment moderate disease with higher flow velocity. 2. Bilateral external carotid arteries revealed mild disease. 3. Vertebral arteries revealed mild disease with antegrade flow. Thank you, Dr. Marcin Thompson, for letting me interpret this study. Job#: [id number] [facility]
--- NOTE | 2017-06-07 15:24 | Cardiology Report ---
DATE OF STUDY: June 04, 2017 VENOUS DOPPLER STUDY HISTORY: This 71-year-old male presented with a history of rectal bleeding and severe anemia. He has known carotid artery disease and history of coronary artery bypass surgery and aortic valve replacement. INTERPRETATION: There were normal compressibility, augmentation and venous filling at all segments bilaterally. Greater saphenous vein was not visualized on the left side as it is surgically dissected out. There was no evidence of any thrombus at any site bilaterally. FINAL IMPRESSION: This is a negative study for deep venous thrombosis in lower extremities bilaterally. Thank you, Dr. Marcin Thompson, for letting me interpret this study. Job#: [id number] R[facility]MERON
[2017-06-07] MEDS ORDERED: FUROSEMIDE 40 MG TAB PO SCH (18:00)
--- NOTE | 2017-06-08 15:39 | Discharge Summary ---
CONSULTATIONS: Dr. Marquez, gastroenterology, Dr. Najera, hematology, Dr. Lowery, nephrology, Dr. Jackson, patient service technician pst. PROCEDURE: Esophagogastroduodenoscopy done by Dr. Marquez on June 05, 2017. FINAL DIAGNOSIS: Critical anemia, status post packed red blood cell transfusion. Stool occult blood negative. OTHER DIAGNOSES 1. Gastritis. 2. Chronic kidney disease, stage 3. 3. Type 2 diabetes mellitus. 4. Hypertension. 5. Hyperlipidemia. 6. BPH. 7. Hypothyroidism. 8. Diastolic congestive heart failure. 9. Heart failure disease without stenosis. BRIEF HOSPITAL COURSE: A 71-year-old [place] male was admitted from the ER by Dr. Hardy. The patient's PCP is Dr. Marcin Thompson. The patient was admitted with complaints of generalized weakness. The patient was found to have critical iron deficiency anemia. He got packed RBC transfusions. Stool occult blood was negative, 2 samples. GI consult was done by Dr. Marquez. He had an EGD, which showed marked gastritis. The patient's hemoglobin remained stable. Cardiology consult was done by Dr. Jackson. The patient also had chronic kidney disease, stage 3. Nephrology consult was done by Dr. Lowery. The patient was started on Epogen for chronic anemia. Dr. Najera, glass cut off tender, was consulted. He gave the patient iron infusion. The patient wanted to go home. He was feeling better. The patient had shortness of breath on presentation. He had an echocardiogram and venous Doppler by Dr. Jackson. Venous Doppler preliminary report was negative for any DVT. The patient was advised to follow with patient service technician pst, emissions technician and glass cut off tender as an outpatient. He was advised to continue iron supplementation by mouth at home. The patient's hemoglobin remained stable at discharge. Past medical history of CAD, aortic valve replacement, porcine valve, and not on any anticoagulation. PHYSICAL EXAMINATION VITALS: BP was 131/76, pulse 90, temp 97.4, respirations 18, SpO2 94% on room air. GENERAL: Not in acute distress. HEENT: NCAT. Moist. Oral mucosa moist. NECK: No JVD. No carotid bruit. No lymphadenopathy. No thyromegaly. HEART: S1 and S2 regular. ABDOMEN: Bowel sounds audible. Soft and nontender. No palpable mass. EXTREMITIES: No edema, cyanosis or clubbing. NEUROLOGICAL: Motor is grossly equal on both sides. LAB DATA: CBC: WBC 12.66, hemoglobin 9.6, hematocrit 19.8, and platelets 218,000, MCV 72, RDW 22, neutrophils 57, lymphocytes 17 and Retic count 3.2. PT 14.6, INR 1.23, and PTT 35. Chemistry panel: Sodium 141, potassium 4.6, chloride 96, CO2 33, anion gap 10, BUN 33, creatinine 1.6, glucose 163. Calcium 10.3. Phosphorus 3. Magnesium 1.5. Iron 260. TIBC 519. Ferritin 17. Vitamin B12 64. Folate 43. TSH 1.37. CK 282, CK-MB 3.6 and troponin 0.103. BNP 308. LDL 36, HDL 37, triglycerides 115, total cholesterol 96. Urinalysis negative for protein, glucose, ketones, , rbcs 0-5 and wbcs 9. Stool for occult blood 2 samples negative. Blood culture no growth in 72 hours. RADIOLOGICAL DATA: X-ray of the chest single view at presentation with bilateral opacities reflecting interstitial edema or atypical infection. Carotid Doppler with bilateral internal carotid artery disease in the high . Bilateral extremity Doppler revealed mild disease, Venous Doppler of bilateral extremities negative for DVT. Renal ultrasound with increase in cortical thickness for medical renal disease. No hydronephrosis. MEDICATIONS AT DISCHARGE: Please refer to the med reconciliation sheet. The patient was advised to stop metformin due to worsening renal function. ACTIVITY: As tolerated and progression. Continue medications per surgical recommendations. Discontinue metformin from home medications. Follow up with patient service technician pst, emissions technician, supervisor finishing room, and glass cut off tender as available. Follow up with PCP, Dr. Marcin Thompson, in 1 week to check CBC and CMP. Monitor BP and fingerstick glucose as home. DIET: A 1200 ADA, 2 g sodium, low cholesterol diet. ROXI DOMINGUEZ MD Job#: [id number] [facility]
== END 2017-06-07 13:48 | disposition home or self-care (01) | DRG 291 ==
LOC: ER 14:13 → ERHOLD 16:48 → IMCU 16:50 → MED/SURG2 17:38
PROVIDERS: ADMIT Internal Medicine; ATTEND Internal Medicine
PROC: 30233N1 Transfusion of Nonautologous Red Blood Cells into Peripheral Vein, Percutaneous Approach (ICD-10-PCS; principal; 2017-06-03)
PROC: 0DB38ZX Excision of Lower Esophagus, Via Natural or Artificial Opening Endoscopic, Diagnostic (ICD-10-PCS; 2017-06-05)
PROC: 0DB68ZX Excision of Stomach, Via Natural or Artificial Opening Endoscopic, Diagnostic (ICD-10-PCS; 2017-06-05)
PROC: 0DBH8ZX Excision of Cecum, Via Natural or Artificial Opening Endoscopic, Diagnostic (ICD-10-PCS; 2017-06-05 10:00)
PROC: 0DBL8ZX Excision of Transverse Colon, Via Natural or Artificial Opening Endoscopic, Diagnostic (ICD-10-PCS; 2017-06-05 10:00)
DX: I13.0 Hypertensive heart and chronic kidney disease with heart failure and stage 1 through stage 4 chronic kidney disease, or unspecified chronic kidney disease (principal); I50.33 Acute on chronic diastolic (congestive) heart failure; N17.9 Acute kidney failure, unspecified; E11.22 Type 2 diabetes mellitus with diabetic chronic kidney disease; E11.51 Type 2 diabetes mellitus with diabetic peripheral angiopathy without gangrene; D62 Acute posthemorrhagic anemia; N39.0 Urinary tract infection, site not specified; N18.3 Chronic kidney disease, stage 3 (moderate); Z95.2 Presence of prosthetic heart valve; I25.10 Atherosclerotic heart disease of native coronary artery without angina pectoris; R01.1 Cardiac murmur, unspecified; N40.0 Benign prostatic hyperplasia without lower urinary tract symptoms; E03.9 Hypothyroidism, unspecified; D12.0 Benign neoplasm of cecum; D12.3 Benign neoplasm of transverse colon; K64.8 Other hemorrhoids; K21.0 Gastro-esophageal reflux disease with esophagitis
CPT/HCPCS: 36415; 43239; 45381; 45385; 71046; 76770; 80053; 80061; 81001; 82270; 82550; 82553; 82607; 82728; 82746; 82948; 83540; 83735; 83880; 84100; 84443; 84466; 84484; 85025; 85045; 85610; 85730; 86850; 86900; 86920; 87040; 88305; 88312; 93005; 93306; 93880; 93970; 94640; 97139; 99284; J1200; J1650; J1756; J1940; J1956; J7050; P9016; Q4081

== ENCOUNTER → 2018-12-19 | Outpatient (CLI) | payer MEDICARE, OTHER ==
[~2018-12-19] MED LIST: CARDURA2 MG PO; CRESTOR10 MG PO; FINASTERIDE5 MG PO; FLOMAX0.4 MG PO; FOLIC ACID1 MG PO; HYDRALAZINE HCL25 MG PO; LASIX40 MG PO; LEVOTHYROXINE75 MCG PO; LYRICA50 MG PO; METFORMIN HCL500 M2 PO; PANTOPRAZOLE SO40 MG PO; PRIMIDONE50 MG PO; ULTRAM 50MG50 MG PO
--- NOTE | 2018-12-19 13:00 | Diagnostic Imaging Report ---
Exam: KUB Clinical history: Hematuria Findings: There is no definite evidence of radiopaque stones along the course of bilateral renal collecting system. Bilateral iliac stents and left femoral stents are visualized. The regional osseous structures are unremarkable. There is nonobstructive bowel gas pattern. Findings: 1. No definite radiographic evidence of radiopaque stones in bilateral renal collecting systems. Signed by: Dr. Alex Huffman MD on 12/19/2018 12:56 PM
== END ==
LOC: RAD 11:50
PROVIDERS: ATTEND Internal Medicine
DX: R31.9 Hematuria, unspecified (principal)
CPT/HCPCS: 74018